=== PATIENT | female | born 1995 | race Caucasian/White ===

== ENCOUNTER 2018-10-21 15:18 | Outpatient (CLI) | payer OTHER ==
[2018-10-21 15:32] LABS: BASOPHILS % 0.4 % (0.0-1.5); NEUTROPHILS # 4.2 # k/uL (1.4-7.7)
[2018-10-21 16:37] LABS: eGFR (Non-African) > 60
== END 2018-10-21 15:20 ==
LOC: LAB 15:18
PROVIDERS: ATTEND Family Medicine
DX: Z00.00 Encounter for general adult medical examination without abnormal findings (principal); Z13.0 Encounter for screening for diseases of the blood and blood-forming organs and certain disorders involving the immune mechanism; Z13.29 Encounter for screening for other suspected endocrine disorder
CPT/HCPCS: 36415; 80053; 84443; 85025